=== PATIENT | female | born 1970 | race African-American/Black ===

== ENCOUNTER 2017-05-03 11:59 | Outpatient (CLI) | payer OTHER ==
--- NOTE | 2017-05-17 22:42 | EKG ---
Test Reason : Blood Pressure : / mmHG Vent. Rate : 079 BPM Atrial Rate : 079 BPM P-R Int : 144 ms QRS Dur : 072 ms QT Int : 336 ms P-R-T Axes : 012 023 022 degrees QTc Int : 385 ms Normal sinus rhythm Low voltage QRS Borderline ECG No previous ECGs available Confirmed by Lloyd AMBRIZ ([id number]) on 05/17/2017 10:42:00 PM Referred By: OSMIN Confirmed By:Lloyd AMBRIZ
== END 2017-05-03 12:00 | disposition home or self-care (01) ==
LOC: LABBT 11:59
PROVIDERS: ATTEND Neurological Surgery
DX: Z01.810 Encounter for preprocedural cardiovascular examination (principal); M54.12 Radiculopathy, cervical region
CPT/HCPCS: 93005; 93010

== ENCOUNTER 2017-05-08 06:11 | Day surgery (SDC) | payer OTHER ==
[2017-05-03 12:19] VITALS: BMI 28.3
--- NOTE | 2017-05-07 22:50 | HP ---
HISTORY OF PRESENT ILLNESS: Ms. Yu is a very pleasant 47-year-old woman who presents for 2 sep arate complaints, one being a left-sided C5 radiculopathy for the last 6-8 months and then axial lowe r back pain that she has had ongoing for eight years now. 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 She has also exhausted [id number] and prescription pain medications as well as physical therapy an d other methods of conservative treatment, none of which have yielded her any significant relief. Sh kesha is understandably distressed by this and would hope to move forward with some type of definitive in tervention if possible. PAST MEDICAL HISTORY: Hypertension. PAST SURGICAL HISTORY: None. CURRENT MEDICATIONS: Unassessed. ALLERGIES: No known drug allergies. PHYSICAL EXAMINATION: NEUROLOGIC: The patient is alert and oriented x3. Positive Spurling to the left, negative to the ri ght. She has limited range of motion to the cervical spine. Upper extremity motor exam is normal. Reflexes are equal and present bilaterally at the biceps tendon. ASSESSMENT: Cervical radiculopathy. PLAN: Dr. Muller met with the patient, reviewed imaging, and advocated for a C4-C5 ACDF. He explaine d to the patient the risks, benefits, and alternatives to the procedure. The patient expressed under standing and would like to move forward with surgery as discussed. I do believe the patient is menta lly competent and capable of making medical decisions for herself and we will move forward with surge ry as planned.
[2017-05-08] MEDS ORDERED: CEFAZOLIN/Water 2 GM/20 ML SYRINGE ONE ×3 (06:25→11:35)
[2017-05-08] MEDS ORDERED: Bupivacaine HCl 0.5%/Epinephrine 1:200,000/PF 30 ml Vial ONE (08:17)
[2017-05-08] MEDS ORDERED: Thrombin 5000 UNITS/5 ML VIAL ONE (08:17)
[2017-05-08] MEDS ORDERED: Fentanyl 250 MCG/5 ML VIAL ONE (08:22)
[2017-05-08] MEDS ORDERED: Midazolam HCl 2 mg/2 ml Vial ONE (08:22)
[2017-05-08] MEDS ORDERED: Fentanyl 100 MCG/2 ML VIAL ONE (10:24)
--- NOTE | 2017-05-08 10:46 | OP ---
DATE OF PROCEDURE: 05/08/2017 SURGEON: Dr. Beltran Muller CRIBBER: Juan A Ramires PA-C. INDICATION: Pain. DIAGNOSIS: Cervical radiculopathy. PROCEDURE: Anterior cervical discectomy and fusion C4-5. ANESTHESIA: General. TECHNIQUE: The patient was brought into the operating room and placed under general anesthesia. She was placed on the table in supine position. A transverse incision was planned over the lateral aspe ct of the neck on the right. After prepping and draping and after an appropriate operative pause, th e incision was created. The soft tissues were swept away from midline and a C-arm image was obtained to confirm the appropriate level. An annulotomy was then performed in the disk space at C4-5 are al l disk material as well as anterior and posterior osteophytes were removed. After complete decompres david, a 6 mm lordotic PEEK cage packed with allograft and autograft material was placed in the interb mary space. An anterior cervical plate was then fashioned in the front of the spine and secured with a total of 4 fixed screws. Midline and lateral structures were inspected and found to be free from s ignificant trauma. The wound was irrigated. Hemostasis was maintained throughout. The wound was th en closed in anatomic layers and a pressure dressing was applied. There were no known procedural com plications.
[2017-05-08] MEDS ORDERED: Ondansetron HCl/PF 4 MG/2 ML Vial ONE (11:07)
[2017-05-08] MEDS ORDERED: Propofol 200 MG/20 ML VIAL ONE (11:07)
[2017-05-08] MEDS ORDERED: Dexamethasone 20 MG/5 ML VIAL ONE (11:07)
[2017-05-08] MEDS ORDERED: PHENYLEPHRINE-NS 100 MCG/ML 10 ML SYRINGE ONE (11:07)
[2017-05-08] MEDS ORDERED: Glycopyrrolate 0.2 MG/ML 5 ML SYRINGE ONE (11:07)
[2017-05-08] MEDS ORDERED: Lidocaine 1% PF 5 ML VIAL ONE (11:07)
[2017-05-08] MEDS ORDERED: HYDROcodone/Acetaminophen 5/325 mg Tablet ONE (11:19)
== END 2017-05-08 12:10 | disposition home or self-care (01) ==
LOC: SDC 06:11 → EDSTATUS 11:00 → SDC 12:10
PROVIDERS: ATTEND Neurological Surgery
PROC: 0RG10A0 Fusion of Cervical Vertebral Joint with Interbody Fusion Device, Anterior Approach, Anterior Column, Open Approach (ICD-10-PCS; principal; 2017-05-08)
PROC: 0RT30ZZ Resection of Cervical Vertebral Disc, Open Approach (ICD-10-PCS; principal; 2017-05-08)
DX: M54.12 Radiculopathy, cervical region (principal); I10 Essential (primary) hypertension; F32.9 Major depressive disorder, single episode, unspecified; Z79.3 Long term (current) use of hormonal contraceptives; Z79.899 Other long term (current) drug therapy; Z88.8 Allergy status to other drugs, medicaments and biological substances
CPT/HCPCS: 76001; C1713; C1776; J0670; J2250; J3010